=== PATIENT | male | born 1945 | race Caucasian/White ===

== ENCOUNTER 2018-10-27 08:39 | Day surgery (SDC) | payer MEDICARE, OTHER ==
[~2018-10-27] VITALS: Ht 177.8 cm; Wt 85.0 kg
[2018-10-27 09:11] VITALS: BP 138/87
[2018-10-27] MEDS ORDERED: [UNRECOGNIZED DRUG - OTHER] (09:11)
[2018-10-27] MEDS ORDERED: NIAC10002 PO (09:11)
[2018-10-27] MEDS ORDERED: METO25TA35 PO (09:11)
[2018-10-27] MEDS ORDERED: [UNRECOGNIZED DRUG - OTHER] (09:11)
[2018-10-27] MEDS ORDERED: [UNRECOGNIZED DRUG - OTHER] (09:11)
[2018-10-27] MEDS ORDERED: RANI300C PO (09:11)
[2018-10-27] MEDS ORDERED: LACTATED RINGERS 1,000 ML IV SCH (09:28)
[2018-10-27] MEDS ORDERED: PROPOFOL 10 MG/ML, 20ML ONE (10:03)
[2018-10-27] MEDS ORDERED: SUCCINYLCHOLINE 20 MG/ML, 10ML ONE (10:03)
[2018-10-27] MEDS ORDERED: LABETALOL 5MG/ML, 20ML IV PRN (10:30)
[2018-10-27] MEDS ORDERED: FENTANYL PF 100 MCG/2ML IV PRN (10:30)
[2018-10-27] MEDS ORDERED: ONDANSETRON 2MG/ML, 2ML IVPush PRN (10:30)
[2018-10-27] MEDS ORDERED: ALBUTEROL SULFATE 2.5 MG/3 ML NPPB PRN (10:30)
[2018-10-27] MEDS ORDERED: METOCLOPRAMIDE 5 MG/ML, 2ML IV PRN (10:30)
[2018-10-27] MEDS ORDERED: HYDROmorphone 1 MG/ML, 1ML IV PRN (10:30)
[2018-10-27] MEDS ORDERED: KETOROLAC 30 MG/1 ML IV PRN (10:30)
[2018-10-27] MEDS ORDERED: hydrALAzine 20 MG/ML, 1ML IV PRN (10:30)
[2018-10-27] MEDS ORDERED: PROMETHAZINE 25 MG/ML, 1ML IV PRN (10:30)
[2018-10-27] MEDS ORDERED: MEPERIDINE/PF 25MG/0.5ML IVPush PRN (10:30)
[2018-10-27] MEDS ORDERED: OXYcodone 5 MG/5 ML ORAL.SOL UDC PO PRN (10:30)
== END 2018-10-27 12:05 | disposition home or self-care (01) ==
LOC: OUT 08:39
PROVIDERS: ATTEND Internal Medicine Geriatric Medicine
DX: C15.5 Malignant neoplasm of lower third of esophagus (principal); K21.9 Gastro-esophageal reflux disease without esophagitis
CPT/HCPCS: 43237; 43239; 88305; 93005; J0330; J2704; J7120